=== PATIENT | male | born 1975 | race Caucasian/White ===

== ENCOUNTER 2016-09-15 18:18 | Emergency (ER) | payer MEDICARE, OTHER ==
[~2016-09-15 18:18] MED LIST: Sodium Chloride 0.9% 1,000 ML BAG ONE
[2016-09-15 18:52] LABS: #Basophils 0.1 thou/uL (0.0-0.2); #Lymphocytes 2.6 thou/uL (1.20-3.40); #Monocytes 0.3 thou/uL (0.11-0.59); %Basophils 0.9 % (0.0-1.0); %Eosinophils 0.1 % (0.0-10.0); %Lymphocytes 43.8 % (21.0-51.0); %Monocytes 5.4 % (0.0-10.0); %Neutrophils 49.8 % (42.0-75.0); Hemoglobin 13.6 g/dL (14.0-18.0); Mean Corpuscular HGB CONC 32.2 g/dL (32.0-36.0); Mean Corpuscular Hemoglobin 24.9 pg (27.0-31.0); Mean Corpuscular Volume 77.2 fl (80.0-94.0); Mean Platelet Volume 6.9 fL (7.4-10.4); Platelet Count 391 thou/uL (130-400); Red Blood Cell (RBC) Count 5.47 mill/uL (4.70-6.10)
[2016-09-15 18:53] LABS: Hypochromia SLIGHT = 6-15 cells (100X) (0-5/hpf); MDiff Complete? YES; Microcytosis SLIGHT = 6-15 cells (100X) (0-5/hpf)
[2016-09-15 18:54] LABS: Manual Diff?? NO
[2016-09-15 19:05] LABS: ALT (SGPT) 10 U/L (0-55); AST (SGOT) 11 U/L (5-34); Albumin 4.6 g/dL (3.5-5.0); Alcohol Less than 10 mg/dL (Less than 10); Alkaline Phosphatase 76 U/L (40-150); Anion Gap 19 mmol/L (10-20); BUN (Urea Nitrogen) 10 mg/dL (8.9-20.6); Bilirubin, Total 0.4 mg/dL (0.2-1.2); Calc. Creatinine Clearance 0 mL/min (70-130); Calcium 10.2 mg/dL (7.8-10.44); Carbon Dioxide 17 mmol/L (22-29); Chloride 107 mmol/L (98-107); Estimated GFR-MDRD 61; Globulin 3.1 g/dL (2.4-3.5); Glucose 118 mg/dL (70-105); Potassium 3.3 mmol/L (3.5-5.1); Protein, Total 7.7 g/dL (6.0-8.3); Sodium 140 mmol/L (136-145)
[2016-09-15] MEDS ORDERED: Ondansetron HCl/PF 4 MG/2 ML Vial ONE (19:07)
[2016-09-15 19:12] LABS: CKMB 0.3 ng/mL (0-6.6); Troponin I Less than 0.010 ng/mL (< 0.028)
[2016-09-15 19:36] LABS: Blood, Urine Negative (Negative); Clarity Clear (Clear); Glucose, Urine (Dipstick) Negative (Negative); Leukocyte Negative (Negative); Nitrite Negative (Negative); Protein, Urine (Dipstick) 30 mg/dL (Neg-Trace); Specific Gravity, Urine 1.015 (1.005-1.030); Urobilinogen 0.2 mg/dL (0.2-1.0); pH, Urine 8.5 (5.0-9.0)
[2016-09-15 19:38] LABS: Bilirubin Negative (Negative); Icto Negative (Negative)
[2016-09-15 19:44] LABS: Amphetamine Not Detected (NotDetected); Barbiturates Screen Not Detected (NotDetected); Benzodiazepine Screen Detected (NotDetected); Cocaine Metabolite Screen Not Detected (NotDetected); Medtox Control Line Valid? VALID (VALID); Methadone Not Detected (NotDetected); Methamphetamine Not Detected (NotDetected); Opiate Screen Not Detected (NotDetected); Oxycodone Screen Not Detected (NotDetected); Phencyclidine (PCP) Not Detected (NotDetected); THC/Cannabinoid Screen Detected (NotDetected); Tricyclic Screen Not Detected (NotDetected)
[2016-09-15 19:47] LABS: Bacteria/HPF Rare-Few HPF (None Seen); RBC/HPF None Seen HPF (0-3); Squamous Epithelial 0-3 HPF (0-3); WBC/HPF 0-3 HPF (0-3)
[2016-09-15] MEDS ORDERED: Lorazepam 2 MG/ML VIAL ONE (20:05)
--- NOTE | 2016-09-15 20:26 | RAD ---
PORTABLE AP CHEST X-RAY 09/15/16 HISTORY: Dyspnea. FINDINGS: No prior studies are available for comparison. The cardiac silhouette and pulmonary vasculature are within normal limits. There is linear scarring versus atelectasis at the left lung base. The lungs are otherwise clear. No pneumothorax or pleural effusion is seen. There are mildly displaced fractures involving the posterior fifth and sixth ribs of which the exact ages are difficult to determine. IMPRESSION: 1. Linear scarring versus atelectasis of the left lung base. There is otherwise no acute cardio pulmonary process. 2. Posterior left fifth and sixth rib fractures of which the exact ages are difficult to determ inate. However, there is appears to be callus formation of the left sixth rib fracture suggesting mo re remote fracture. POS: GIOVANNA
[2016-09-15] MEDS ORDERED: D5 1/2 NS w/20 mEq KCL 1,000 ML ONE (20:46)
== END 2016-09-15 23:20 | disposition home or self-care (01) ==
LOC: MADERS 18:18
DX: T73.0XXA Starvation, initial encounter (principal); E87.2 Acidosis; F41.9 Anxiety disorder, unspecified; I10 Essential (primary) hypertension; E11.9 Type 2 diabetes mellitus without complications; F32.9 Major depressive disorder, single episode, unspecified; F17.210 Nicotine dependence, cigarettes, uncomplicated
CPT/HCPCS: 36415; 36416; 71010; 80053; 80306; 80307; 81003; 81015; 82553; 83605; 83880; 84484; 85025; 85379; 93005; 96361; 96374; 96375; 96376; J2060; J2405; J7050